=== PATIENT | male | born 1955 | race American Indian/Alaskan Native ===

== ENCOUNTER 2020-05-01 18:21 | Emergency (ER) | payer OTHER ==
--- NOTE | 2020-05-01 20:17 | EDM.PDOC ---
ED HPI GENERAL MEDICAL PROBLEM - General Chief Complaint: Gastrointestinal Problem Stated Complaint: colostomy bag ISSUES Time Seen by Provider: 05/01/20 19:26 Source of Information: Reports: Patient History Limitations: Reports: No Limitations - History of Present Illness INITIAL COMMENTS - FREE TEXT/NARRATIVE: Elliot is a 64-year-old male presenting to the ED for evaluation of his postoperative surgical wound. Patient was at [facility] and underwent a partial colectomy for colon cancer. He has a colostomy now in the midline lower abdominal incision. It appears that several of the alber have been removed and now there is serosanguineous fluid draining from the lower incision likely secondary to a seroma. The wound itself with the exception of this 1 suture area appears clean, dry, and intact. There is no sign for infection. The fluid started leaking this afternoon. The patient is also here because he does not have colostomy supplies and is wanting to change his colostomy bag which has been in place for 3 days. - Related Data Allergies Allergy/AdvReac Type Severity Reaction Status Date / Time No Known Allergies Allergy Verified 05/01/20 19:26 Home Meds: Home Meds lisinopriL [Lisinopril] 20 mg PO DAILY 05/01/20 [History] oxyCODONE 5 mg PO Q4H PRN 05/01/20 [History] Past Medical History HEENT History: Reports: Hard of Hearing Cardiovascular History: Reports: Hypertension Gastrointestinal History: Reports: None Genitourinary History: Reports: Chronic Renal Insuffiency Musculoskeletal History: Reports: Arthritis Oncologic (Cancer) History: Reports: Colon, Other (See Below) Other Oncologic History: liver mets - Past Surgical History HEENT Surgical History: Reports: None Cardiovascular Surgical History: Reports: None GI Surgical History: Reports: Cholecystectomy, Colonoscopy, Colostomy Male Surgical History: Reports: None Musculoskeletal Surgical History: Reports: None Oncologic Surgical History: Reports: None Dermatological Surgical History: Reports: None Social & Family History - Tobacco Use Smoking Status *Q: Never Smoker Second Hand Smoke Exposure: No - Caffeine Use Caffeine Use: Reports: None - Recreational Drug Use Recreational Drug Use: No ED ROS GENERAL - Review of Systems Review Of Systems: See Below Constitutional: Reports: No Symptoms HEENT: Reports: No Symptoms Respiratory: Reports: No Symptoms Cardiovascular: Reports: No Symptoms Endocrine: Reports: No Symptoms GI/Abdominal: Reports: Other (Serosanguineous fluid draining from the lower segment of the surgical wound. Colostomy is in place and functioning properly.) : Reports: No Symptoms Musculoskeletal: Reports: No Symptoms Skin: Reports: Wound (Surgical wound is clean, dry, and intact except for the lower segment or serosanguineous fluid is being expressed from a previous staple site. This is likely secondary to a seroma.) Neurological: Reports: No Symptoms Psychiatric: Reports: No Symptoms Hematologic/Lymphatic: Reports: No Symptoms Immunologic: Reports: No Symptoms ED EXAM, GI/ABD - Physical Exam Exam: See Below Exam Limited By: No Limitations General Appearance: Alert, WD/WN, No Apparent Distress GI/Abdominal Exam: Normal Bowel Sounds, Soft, Non-Tender, No Distention, No Abnormal Bruit, Other (Surgical wound is clean dry and intact except for the lower third where there is expression of serosanguineous fluid from a previous staple site likely secondary to a seroma. The site itself is not increased in temperature or tenderness. There is no significant erythema. There is no purulent discharge.) Skin Exam: Warm, Dry Course - Vital Signs Last Recorded V/S: Last Vital Signs Temp 37.5 C 05/01/20 19:22 Pulse 90 05/01/20 19:22 Resp 16 05/01/20 19:22 BP 144/78 H 05/01/20 19:22 Pulse Ox 96 05/01/20 19:22 Departure - Departure Time of Disposition: 20:13 Disposition: Home, Self-Care 01 Condition: Good Clinical Impression: Encounter for postoperative wound check - Discharge Information *PRESCRIPTION DRUG MONITORING PROGRAM REVIEWED*: Not Applicable *COPY OF PRESCRIPTION DRUG MONITORING REPORT IN PATIENT NATHANIEL: Not Applicable Instructions: Wound Care, Adult, Sutured Wound Care, [id number] Referrals: Marii Mora DO [Primary Care Provider] - Forms: ED Department Discharge Care Plan Goals: Follow-up with your surgeon as previously arranged. Return to the ED for evaluation if any signs of infection are seen including increased redness, pain, increased temperature, or purulent discharge. Sepsis Event Note (ED) - Evaluation Sepsis Screening Result: No Definite Risk - Focused Exam Vital Signs: Vital Signs Temp Pulse Resp BP Pulse Ox 05/01/20 19:22 37.5 C 90 16 144/78 H 96 05/01/20 19:15 37.5 C 90 16 144/78 H 96 - Problem List & Annotations (1) Encounter for postoperative wound check SNOMED Code(s): 420622043, 140631541, 449914712, 201288713 Code(s): Z48.89 - ENCOUNTER FOR OTHER SPECIFIED SURGICAL AFTERCARE Status: Acute Priority: High Current Visit: Yes - Problem List Review Problem List Initiated/Reviewed/Updated: Yes - Assessment/Plan Plan: Follow-up with your surgeon as previously arranged. Return to the ED for evaluation if any signs of infection are seen including increased redness, pain, increased temperature, or purulent discharge.
== END 2020-05-01 20:27 | disposition home or self-care (01) ==
LOC: JP.ED 18:21
DX: Z48.815 Encounter for surgical aftercare following surgery on the digestive system (principal); Z93.3 Colostomy status; I10 Essential (primary) hypertension; M19.90 Unspecified osteoarthritis, unspecified site; Z79.899 Other long term (current) drug therapy; Z90.89 Acquired absence of other organs
CPT/HCPCS: 99282